=== PATIENT | female | born 2000 | race American Indian/Alaskan Native ===

== ENCOUNTER 2021-11-25 01:54 | Outpatient (CLI) | payer MEDICAID ==
[2021-11-25] MEDS ORDERED: MINERAL OIL 30 ML ORAL LIQD ONE (02:02)
[2021-11-25 06:11] VITALS: BP 113/52
== END 2021-11-25 07:16 | disposition home or self-care (01) ==
LOC: TRG 01:54 → APU 01:56 → TRG 07:16
PROVIDERS: ATTEND Obstetrics & Gynecology
DX: Z34.93 Encounter for supervision of normal pregnancy, unspecified, third trimester (principal); Z3A.36 36 weeks gestation of pregnancy
CPT/HCPCS: 36415; 59025; 84112